=== PATIENT | female | born 1965 | race Caucasian/White ===

== ENCOUNTER → 2016-11-08 | Outpatient (CLI) | payer OTHER ==
[2016-11-08 08:44] LABS: CHOLESTEROL 173.78 mg/dL (0-200); CREATINE KINASE 78 U/L (30-135); Direct HDL 44 mg/dL (>40); TRIGLYCERIDES 152 mg/dL (<150)
[2016-11-08 08:56] LABS: DIRECT LDL 90 mg/dL (<100)
[2016-11-08 09:07] LABS: VLDL CHOLESTEROL 30.4 mg/dL (10-31)
== END ==
LOC: OD 07:07
PROVIDERS: ATTEND Internal Medicine Cardiovascular Disease
DX: E78.2 Mixed hyperlipidemia (principal)
CPT/HCPCS: 36415; 80061; 82550

== ENCOUNTER → 2017-05-01 | Outpatient (CLI) | payer OTHER ==
[2017-05-01 08:25] LABS: CHOLESTEROL 146.96 mg/dL (0-200); Direct HDL 43 mg/dL (>40); TRIGLYCERIDES 104 mg/dL (<150)
[2017-05-01 08:39] LABS: DIRECT LDL 86 mg/dL (<100)
== END ==
LOC: OD 07:08
PROVIDERS: ATTEND Internal Medicine Cardiovascular Disease
DX: E78.2 Mixed hyperlipidemia (principal)
CPT/HCPCS: 36415; 80061

== ENCOUNTER → 2017-06-24 | Outpatient (CLI) | payer OTHER ==
[2017-06-24 10:41] LABS: ALANINE AMINOTRANSFERASE 23 U/L (9-52); ALBUMIN 4.5 g/dL (3.5-5.0); ALKALINE PHOSPHATASE 94 U/L (38-126); ASPARTATE AMINO TRANSFERASE 22 U/L (14-36); BILIRUBIN,DIRECT 0.3 mg/dL (0.0-0.4); BILIRUBIN,TOTAL 0.6 mg/dL (0.2-1.3); CHOLESTEROL 256.01 mg/dL (0-200); CREATINE KINASE 115 U/L (30-135); TOTAL PROTEIN 7.1 g/dL (6.3-8.2); TRIGLYCERIDES 234 mg/dL (<150)
[2017-06-24 10:53] LABS: DIRECT LDL 169 mg/dL (<100)
[2017-06-24 10:56] LABS: VLDL CHOLESTEROL 46.8 mg/dL (10-31)
== END ==
LOC: OD 08:56
PROVIDERS: ATTEND Internal Medicine Cardiovascular Disease
DX: E78.2 Mixed hyperlipidemia (principal)
CPT/HCPCS: 36415; 80061; 80076; 82550

== ENCOUNTER → 2017-08-25 | Outpatient (CLI) | payer OTHER ==
[2017-08-25 10:43] LABS: ALANINE AMINOTRANSFERASE 35 U/L (9-52); ALBUMIN 4.7 g/dL (3.5-5.0); ALKALINE PHOSPHATASE 82 U/L (38-126); ASPARTATE AMINO TRANSFERASE 25 U/L (14-36); BILIRUBIN,DIRECT 0.1 mg/dL (0.0-0.4); BILIRUBIN,TOTAL 0.3 mg/dL (0.2-1.3); CHOLESTEROL 147.97 mg/dL (0-200); CREATINE KINASE 105 U/L (30-135); TOTAL PROTEIN 6.9 g/dL (6.3-8.2); TRIGLYCERIDES 119 mg/dL (<150)
[2017-08-25 10:54] LABS: DIRECT LDL 74 mg/dL (<100)
== END ==
LOC: OD 09:16
PROVIDERS: ATTEND Internal Medicine Cardiovascular Disease
DX: E78.2 Mixed hyperlipidemia (principal); R25.2 Cramp and spasm; Z79.899 Other long term (current) drug therapy
CPT/HCPCS: 36415; 80061; 80076; 82550

== ENCOUNTER → 2017-12-12 | Outpatient (CLI) | payer OTHER ==
[2017-12-12 08:38] LABS: ALANINE AMINOTRANSFERASE 26 U/L (9-52); ALBUMIN 4.4 g/dL (3.5-5.0); ALKALINE PHOSPHATASE 83 U/L (38-126); ASPARTATE AMINO TRANSFERASE 20 U/L (14-36); BILIRUBIN,DIRECT 0.3 mg/dL (0.0-0.4); BILIRUBIN,TOTAL 0.4 mg/dL (0.2-1.3); TOTAL PROTEIN 7.2 g/dL (6.3-8.2); TRIGLYCERIDES 127 mg/dL (<150)
[2017-12-12 08:49] LABS: DIRECT LDL 77 mg/dL (<100)
== END ==
LOC: OD 07:29
PROVIDERS: ATTEND Internal Medicine Cardiovascular Disease
DX: E78.2 Mixed hyperlipidemia (principal)
CPT/HCPCS: 36415; 80061; 80076

== ENCOUNTER → 2019-09-29 | Outpatient (CLI) | payer OTHER ==
--- NOTE | 2019-09-29 11:55 | RADIOLOGY REPORT (SQ) ---
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 RADIONUCLIDE AND DOSE: 24.4 mCi technetium 99m labeled red blood cells The route of agent administration: Intravenous TECHNIQUE: Following administration of the radionuclide, gated images of the heart are obtained in t hree projections. Left ventricular functional analysis performed. LIMITATIONS: None. FINDINGS: LEFT VENTRICULAR FUNCTION: EJECTION FRACTION: 66%. END-DIASTOLIC VOLUME: 78 mL. END-SYSTOLIC VOLUME: 30 mL. WALL MOTION: No focal wall motion abnormalities. OTHER: No other significant finding. IMPRESSION: NORMAL CARDIAC MUGA STUDY. NORMAL LEFT VENTRICULAR FUNCTION WITH VALUES ABOVE. TECHNICAL DOCUMENTATION: JOB ID: [id number] 2010 [employer]- All Rights Reserved Reading location - IP/workstation name: [email or web address]
== END ==
LOC: RAD 10:39
PROVIDERS: ATTEND Internal Medicine
DX: C50.412 Malignant neoplasm of upper-outer quadrant of left female breast (principal); R06.02 Shortness of breath
CPT/HCPCS: 78472; A9560; Q9969

== ENCOUNTER 2019-10-21 12:54 | Inpatient (IN) | payer OTHER ==
[2019-10-21] MEDS ORDERED: RINGERS SOLUTION,LACTATED 1,000 ML IV ONE ×2 (13:27→16:48)
[2019-10-21] MEDS ORDERED: ONDANSETRON HCL INJ/PF 4 MG/2 ML SDV IV ONE (13:27)
--- NOTE | 2019-10-21 13:36 | ER Document Report ---
ED Syncope and Near Syncope <MACHO OLEA - Last Filed: 10/21/19 16:50> - General Information source: Patient TRAVEL OUTSIDE OF THE [place] IN LAST 30 DAYS: No - HPI Episode witnessed (by whom): Yes Symptoms prior to episode: Abdominal pain, Dizziness. No: Chest pain, Fever, Headache, Short of breath Quality of pain: Cramping Pain Level: 1 Context: Marlow faint, Lost consciousness. denies: Recent immobilization, Recent seizures Current symptoms: Abdominal pain, Diarrhea, Dizziness, Nausea, Vomiting. denies: Back pain, Breathing difficulty, Chest pain Similar symptoms previously: Yes Recently seen / treated by doctor: Yes <BRAD ARMANDO - Last Filed: 10/21/19 17:12> - General Chief Complaint: Syncope Stated Complaint: SYNCOPE Time Seen by Provider: 10/21/19 13:02 Primary Care Provider: HU KINNEY MD [Primary Care Provider] - Follow up as needed Notes: Patient presents complaining of abdominal cramping with nausea vomiting and diarrhea. Patient states she has had symptoms for the past 4 days. Patient was at her oncologist office this afternoon and had a syncopal episode prior to arrival. Her oncologist also reported that she had a temperature of 100.2 in the office and would like to have her screened for COVID. Patient states that she feels as though she passed out due to dehydration due to the vomiting and diarrhea. Patient states that she is on a new chemo medication that has vomiting and diarrhea as side effects. Patient states that she had a syncopal episode 2 days ago as well at home but was not seen after that incident. Patient is currently receiving chemotherapy treatment for breast cancer. Patient denies any chest pain, shortness of breath, or headache. Patient reports abdominal cramping prior to diarrhea episodes and then the cramping improves. (BRAD ARMANDO) - Related Data Allergies/Adverse Reactions: cephalexin monohydrate [From Keflex] Allergy (Verified 07/12/15 13:29) clarithromycin [From Biaxin] Allergy (Verified 07/12/15 13:29) erythromycin base [Erythromycin Base] Allergy (Verified 07/12/15 13:29) erythromycin lactobionate [From Erythrocin] Allergy (Verified 07/12/15 13:29) ibuprofen [Ibuprofen] Allergy (Verified 07/12/15 13:29) iodine [Iodine] Allergy (Verified 07/12/15 13:29) Sulfa (Sulfonamide Antibiotics) Allergy (Verified 07/12/15 13:29) Past Medical History - General Information source: Patient - Social History Smoking Status: Never Smoker Frequency of alcohol use: None Drug Abuse: None Lives with: Spouse/Significant other Family History: Reviewed & Not Pertinent, Other Patient has homicidal ideation: No - Past Medical History Cardiac Medical History: Reports: Hx Atrial Fibrillation - Treated with ablation, Hx Hypercholesterolemia Endocrine Medical History: Reports: Hx Hypothyroidism Malignancy Medical History: Reports: Hx Breast Cancer Past Surgical History: Reports: Hx Cardiac Surgery, Hx Thyroid Surgery - removal, Hx Vascular Surgery - Port - Immunizations Hx Diphtheria, Pertussis, Tetanus Vaccination: Yes <BRAD ARMANDO - Last Filed: 10/21/19 17:12> Review of Systems - Review of Systems Constitutional: Fever - 100.2. denies: Recent illness EENT: No symptoms reported Cardiovascular: Syncope, Lightheaded. denies: Chest pain Respiratory: No symptoms reported. denies: Cough, Short of breath Gastrointestinal: Abdominal pain, Diarrhea, Nausea, Vomiting Genitourinary: No symptoms reported. denies: Dysuria, Flank pain Female Genitourinary: No symptoms reported Musculoskeletal: No symptoms reported. denies: Back pain Skin: No symptoms reported Hematologic/Lymphatic: No symptoms reported Neurological/Psychological: No symptoms reported <BRAD ARMANDO - Last Filed: 10/21/19 17:12> Physical Exam - General General appearance: Appears well, Alert In distress: None - HEENT Head: Normocephalic, Atraumatic Eyes: Normal Nasal: Normal Mouth/Lips: Normal Mucous membranes: Normal Neck: Normal, Supple. No: Lymphadenopathy - Respiratory Respiratory status: No respiratory distress Chest status: Nontender Breath sounds: Normal. No: Rales, Rhonchi, Stridor, Wheezing Chest palpation: Normal - Cardiovascular Rhythm: Regular. No: Tachycardia Heart sounds: S1 appreciated, S2 appreciated - Abdominal Inspection: Morbidly Obese Distension: No distension Bowel sounds: Normal Tenderness: Tender - Generalized abdomen tenderness Organomegaly: No organomegaly - Back Back: Normal, Nontender. No: CVA tenderness - Extremities General upper extremity: Normal inspection, Normal ROM General lower extremity: Normal inspection, Normal ROM - Neurological Neuro grossly intact: Yes Cognition: Normal Jacqueline Coma Scale Eye Opening: Spontaneous Jakin Coma Scale Verbal: Oriented Jacqueline Coma Scale Motor: Obeys Commands Jacqueline Coma Scale Total: 15 - Psychological Associated symptoms: Normal affect, Normal mood - Skin Skin Temperature: Warm Skin Moisture: Dry Skin Color: Normal <BRAD ARMANDO - Last Filed: 10/21/19 17:12> - Vital signs Vitals: Temp Pulse Resp BP Pulse Ox 99.1 F 99 18 130/55 H 99 10/21/19 12:56 10/21/19 12:56 10/21/19 12:56 10/21/19 12:56 10/21/19 12:56 Course - Laboratory Result Diagrams: 10/21/19 14:01 10/21/19 14:01 <MACHO OLEA - Last Filed: 10/21/19 16:50> - Laboratory Result Diagrams: 10/21/19 14:01 10/21/19 14:01 - Diagnostic Test Radiology reviewed: Reports reviewed - EKG Interpretation by [facility] EKG shows normal: Sinus rhythm [place]/QRS: RBBB When compared to previous EKG there are: No significant change <BRAD ARMANDO - Last Filed: 10/21/19 17:12> - Re-evaluation Re-evalutation: 10/21/19 16:50 Report received from CORINA Falcon. Waiting for next troponin. (MACHO OLEA) 10/21/19 13:37 The patient was evaluated during the global Covid 19 pandemic, and that diagnosis was suspected/considered upon their initial presentation. Their evaluation, treatment and testing was consistent with current guidelines for patients who present with complaints or symptoms that may be related to Covid [address]. [address] Littlejohn regarding patient presentation diagnostic evaluation. Agrees with plan for CT imaging of the head and CTA of the chest given patient's underlying history of breast cancer in the setting of syncope today. 10/21/19 15:09 Patient reports that nausea is improved at this time. Patient states that she has had an iodine allergy although has had CT imaging with IV contrast. Patient states that she did receive IV Benadryl and Pepcid prior to having her CT scan. Patient denies any use of steroids prior to imaging. 10/21/19 15:50 10/21/19 17:[address] Kinney regarding patient presentation and her diagnostic evaluation. Dr. Kinney request that a dose of IV vancomycin be given at a dose of 15 mg/kg and additional 1 g of imipenem. Also recommends having patient admitted for IV hydration given concern about syncope, neutropenia and fever. Does also request patient to be COVID tested. Patient is agreeable with this plan of care. Consulted with hospitalist Dr. Bernal who does agree to accept patient for admission at this time. Patient states that she does have an allergy to Keflex but that it only caused her to become nauseous and she did not have any anaphylactic symptoms. (BRAD ARMANDO) - Vital Signs Vital signs: Temp Pulse Resp BP Pulse Ox 99.1 F 91 23 H 125/75 100 10/21/19 12:56 10/21/19 14:38 10/21/19 16:02 10/21/19 16:02 10/21/19 16:02 - Laboratory Laboratory results interpreted by me: 10/21/19 10/21/19 14:01 14:01 WBC 1.3 L* Hct 34.7 L Seg Neuts % (Manual) 20 L Lymphocytes % (Manual) 50 H Monocytes % (Manual) 30 H Abs Neuts (Manual) 0.3 L Sodium 130.0 L Carbon Dioxide 19 L 10/21/19 10/21/19 14:01 14:01 WBC 1.3 L* Hct 34.7 L Seg Neuts % (Manual) 20 L Lymphocytes % (Manual) 50 H Monocytes % (Manual) 30 H Abs Neuts (Manual) 0.3 L Sodium 130.0 L Carbon Dioxide 19 L 10/21/19 17:11 Labs- Entire Visit 10/21/19 10/21/19 10/21/19 14:01 14:01 14:01 WBC 1.3 L* RBC 4.03 Hgb 12.2 Hct 34.7 L MCV 86 MCH 30.3 MCHC 35.2 RDW 13.3 Plt Count 182 Lymph % (Auto) Not Reportable [place] % (Auto) Not Reportable Eos % (Auto) Not Reportable Baso % (Auto) Not Reportable Absolute Neuts (auto) Not Reportable Absolute Lymphs (auto) Not Reportable Absolute Monos (auto) Not Reportable Absolute Eos (auto) Not Reportable Absolute Basos (auto) Not Reportable Total Counted 50 Seg Neutrophils % Not Reportable Seg Neuts % (Manual) 20 L Lymphocytes % (Manual) 50 H Monocytes % (Manual) 30 H Eosinophils % (Manual) 0 Basophils % (Manual) 0 Abs Neuts (Manual) 0.3 L Abs Lymphs (Manual) 0.7 Abs Monocytes (Manual) 0.4 Absolute Eos (Manual) 0.0 Abs Basophils (Manual) 0.0 Toxic Vacuolation PRESENT Large Platelets PRESENT Platelet Comment ADEQUATE Polychromasia SLIGHT Sodium 130.0 L Potassium 3.6 Chloride 101 Carbon Dioxide 19 L Anion Gap 10 BUN 11 Creatinine 0.74 Est GFR ( Amer) > 60 Est GFR (MDRD) Non-Af > 60 Glucose 94 Calcium 8.8 Magnesium 2.0 Total Bilirubin 0.4 Direct Bilirubin 0.0 Neonat Total Bilirubin Not Reportable Neonat Direct Bilirubin Not Reportable Neonat Indirect Bili Not Reportable AST 30 ALT 31 Alkaline Phosphatase 80 Troponin I < 0.012 Total Protein 6.5 Albumin 3.8 Lipase 191.5 Group A Strep Rapid 10/21/19 14:09 WBC RBC Hgb Hct MCV MCH MCHC RDW Plt Count Lymph % (Auto) [place] % (Auto) Eos % (Auto) Baso % (Auto) Absolute Neuts (auto) Absolute Lymphs (auto) Absolute Monos (auto) Absolute Eos (auto) Absolute Basos (auto) Total Counted Seg Neutrophils % Seg Neuts % (Manual) Lymphocytes % (Manual) Monocytes % (Manual) Eosinophils % (Manual) Basophils % (Manual) Abs Neuts (Manual) Abs Lymphs (Manual) Abs Monocytes (Manual) Absolute Eos (Manual) Abs Basophils (Manual) Toxic Vacuolation Large Platelets Platelet Comment Polychromasia Sodium Potassium Chloride Carbon Dioxide Anion Gap BUN Creatinine Est GFR ( Amer) Est GFR (MDRD) Non-Af Glucose Calcium Magnesium Total Bilirubin Direct Bilirubin Neonat Total Bilirubin Neonat Direct Bilirubin Neonat Indirect Bili AST ALT Alkaline Phosphatase Troponin I Total Protein Albumin Lipase Group A Strep Rapid NEGATIVE (BRAD ARMANDO) - EKG Interpretation by Me Additional EKG results interpreted by me: 10/21/19 14:[address] elevation, QTc 491 (BRAD ARMANDO) Discharge <MACHO OLEA - Last Filed: 10/21/19 16:50> - Discharge Admitting Provider: Dolores (Hospitalist) Unit Admitted: Telemetry - covid floor <BRAD ARMANDO - Last Filed: 10/21/19 17:12> - Discharge Clinical Impression: Syncope Qualifiers: Syncope type: unspecified Qualified Code(s): R55 - Syncope and collapse Fever Qualifiers: Fever type: unspecified Qualified Code(s): R50.9 - Fever, unspecified Neutropenia Qualifiers: Neutropenia type: secondary to cancer chemotherapy Qualified Code(s): D70.1 - Agranulocytosis secondary to cancer chemotherapy Breast cancer Qualifiers: Breast location: unspecified site of breast Estrogen receptor status: unspecified Patient sex: female Laterality: unspecified laterality Qualified Code(s): C50.919 - Malignant neoplasm of unspecified site of unspecified female breast Condition: Fair Disposition: ADMITTED INPATIENT Referrals: HU KINNEY MD [Primary Care Provider] - Follow up as needed
--- NOTE | 2019-10-21 14:15 | RADIOLOGY REPORT (SQ) ---
EXAM DESCRIPTION: CHEST SINGLE VIEW IMAGES COMPLETED DATE/TIME: 10/21/2019 2:04 pm REASON FOR STUDY: syncope COMPARISON: 07/12/2015. EXAM PARAMETERS: NUMBER OF VIEWS: One view. TECHNIQUE: Single frontal radiographic view of the chest acquired. RADIATION DOSE: NA LIMITATIONS: None. FINDINGS: LUNGS AND PLEURA: No opacities, masses or pneumothorax. No pleural effusion. MEDIASTINUM AND HILAR STRUCTURES: No masses. Contour normal. HEART AND VASCULAR STRUCTURES: Heart normal in size. Normal vasculature. BONES: No acute findings. HARDWARE: Vascular port. Clips in the soft tissues of the neck. OTHER: No other significant finding. IMPRESSION: NO ACUTE RADIOGRAPHIC FINDING IN THE CHEST. TECHNICAL DOCUMENTATION: JOB ID: [id number] 2010 [employer]- All Rights Reserved Reading location - IP/workstation name: [email or web address]
[2019-10-21 14:38] LABS: HEMATOCRIT 34.7 % (36.0-47.0); HEMOGLOBIN 12.2 g/dL (12.0-15.5); MEAN CORPUSCULAR HEMOGLOBIN 30.3 pg (27.0-33.4); MEAN CORPUSCULAR HGB CONC 35.2 g/dL (32.0-36.0); MEAN CORPUSCULAR VOLUME 86 fl (80-97); PLATELET COUNT 182 10^3/uL (150-450); RED BLOOD COUNT 4.03 10^6/uL (3.72-5.28); RED CELL DISTRIBUTION WIDTH 13.3 % (11.5-14.0)
[2019-10-21 14:46] LABS: ALBUMIN 3.8 g/dL (3.5-5.0); ALKALINE PHOSPHATASE 80 U/L (38-126); ANION GAP 10 (5-19); ASPARTATE AMINO TRANSFERASE 30 U/L (14-36); BILIRUBIN,TOTAL 0.4 mg/dL (0.2-1.3); BLOOD UREA NITROGEN 11 mg/dL (7-20); CALCIUM 8.8 mg/dL (8.4-10.2); CARBON DIOXIDE 19 mmol/L (22-30); CHLORIDE 101 mmol/L (98-107); GLUCOSE 94 mg/dL (75-110); POTASSIUM 3.6 mmol/L (3.6-5.0); TOTAL PROTEIN 6.5 g/dL (6.3-8.2)
[2019-10-21 15:02] LABS: ABSOLUTE LYMPHOCYTES# (MANUAL) 0.7 10^3/uL (0.5-4.7); ABSOLUTE MONOCYTES # (MANUAL) 0.4 10^3/uL (0.1-1.4); BASOPHILS % (MANUAL) 0 % (0-2); EOSINOPHILS % (MANUAL) 0 % (0-6); LYMPHOCYTES % (MANUAL) 50 % (13-45); PLATELET COMMENT ADEQUATE; SEGMENTED NEUTROPHILS % (MAN) 20 % (42-78); TOTAL CELLS COUNTED 50
[2019-10-21 15:03] LABS: PLATELET LARGE PRESENT; POLYCHROMASIA SLIGHT; TOXIC VACUOLATION PRESENT
[2019-10-21 15:05] LABS: MONOCYTES % (MANUAL) 30 % (3-13)
[2019-10-21 15:07] LABS: WHITE BLOOD COUNT 1.3 10^3/uL (4.0-10.5)
[2019-10-21] MEDS ORDERED: DIPHENHYDRAMINE HCL 50 MG/ML VIAL IV ONE (15:08)
[2019-10-21] MEDS ORDERED: FAMOTIDINE INJ/PF 20 MG/2 ML SDV IV ONE (15:09)
--- NOTE | 2019-10-21 16:09 | RADIOLOGY REPORT (SQ) ---
EXAM DESCRIPTION: CT HEAD WITHOUT IMAGES COMPLETED DATE/TIME: 10/21/2019 3:59 pm REASON FOR STUDY: syncope COMPARISON: None. TECHNIQUE: Axial images acquired through the brain without intravenous contrast. Images reviewed wi th bone, brain and subdural windows. Additional sagittal and coronal reconstructions were generated. Images stored on PACS. All CT scanners at this facility use dose modulation, iterative reconstruction, and/or weight based d osing when appropriate to reduce radiation dose to as low as reasonably achievable (ALARA). [facility]: Dose Right [facility]: CareDose [facility]: Dose Right [facility]: Teradose 4D [facility]: ezCater RADIATION DOSE: CT Rad equipment meets quality standard of care and radiation dose reduction techniq ues were employed. CTDIvol: 53.2 mGy. DLP: 991 mGy-cm. mGy. LIMITATIONS: None. FINDINGS: VENTRICLES: Normal size and contour. CEREBRUM: No masses. No hemorrhage. No midline shift. No evidence for acute infarction. Normal gra y/white matter differentiation. No areas of low density in the white matter. CEREBELLUM: No masses. No hemorrhage. No alteration of density. No evidence for acute infarction. EXTRAAXIAL SPACES: No fluid collections. No masses. ORBITS AND GLOBE: No intra- or extraconal masses. Normal contour of globe without masses. CALVARIUM: No fracture. PARANASAL SINUSES: No fluid or mucosal thickening. SOFT TISSUES: No mass or hematoma. OTHER: No other significant finding. IMPRESSION: NORMAL BRAIN CT WITHOUT CONTRAST. EVIDENCE OF ACUTE STROKE: NO. COMMENT: Quality ID # [id number]: Final reports with documentation of one or more dose reduction techniques (e.g., Automated exposure control, adjustment of the mA and/or kV according to patient size, use of iterative reconstruction technique) TECHNICAL DOCUMENTATION: JOB ID: [id number] 2010 [employer]- All Rights Reserved Reading location - IP/workstation name: [email or web address]
--- NOTE | 2019-10-21 16:11 | RADIOLOGY REPORT (SQ) ---
EXAM DESCRIPTION: CTA CHEST IMAGES COMPLETED DATE/TIME: 10/21/2019 3:59 pm REASON FOR STUDY: syncope, hx breast cancer COMPARISON: None. TECHNIQUE: CT scan of the chest performed using helical scanning technique with dynamic intravenous contrast injection. Images reviewed with lung, soft tissue and bone windows. Reconstructed coronal and sagittal MPR images reviewed. Additional 3 dimensional post-processing performed to develop Maximal Intensity Projection images (MO P). All images stored on PACS. All CT scanners at this facility use dose modulation, iterative reconstruction, and/or weight based d osing when appropriate to reduce radiation dose to as low as reasonably achievable (ALARA). [facility]: Dose Right [facility]: CareDose [facility]: Dose Right [facility]: Teradose 4D [facility]: Liquid X CONTRAST TYPE AND DOSE: contrast/concentration: Isovue 350.00 mg/ml; Total Contrast Delivered: 65.0 ml; Total Saline Delivered: 65.9 ml Contrast bolus adequate for pulmonary arteries and aorta. RENAL FUNCTION: GFR > 60. RADIATION DOSE: CT Rad equipment meets quality standard of care and radiation dose reduction techniq ues were employed. CTDIvol: 13.2 - 29.8 mGy. DLP: 1179 mGy-cm. . LIMITATIONS: None. FINDINGS: LUNGS AND PLEURA: No masses, infiltrates, or pneumothorax. No pleural effusions or pleura l calcifications. AORTA AND GREAT VESSELS: No aneurysm. No dissection. HEART: No pericardial effusion. No significant coronary artery calcifications. PULMONARY ARTERIES: No emboli visualized in the main pulmonary arteries or the segmental branches. HILAR AND MEDIASTINAL STRUCTURES: No identified masses or abnormal nodes. HARDWARE: None in the chest. UPPER ABDOMEN: No significant findings. Limited exam. THYROID AND OTHER SOFT TISSUES: No masses. No adenopathy. BONES: No acute or significant finding. 3D MIPS: Confirm above findings. OTHER: Right-sided port tip in the SVC. IMPRESSION: No PE. No acute findings. COMMENT: Quality ID # [id number]: Final reports with documentation of one or more dose reduction techniques (e.g., Automated exposure control, adjustment of the mA and/or kV according to patient size, use of iterative reconstruction technique) TECHNICAL DOCUMENTATION: JOB ID: [id number] 2010 [employer]- All Rights Reserved Reading location - IP/workstation name: [email or web address]
[2019-10-21] MEDS ORDERED: VANCOMYCIN HCL INJ 1000 MG VIAL IV ONE (16:50)
[2019-10-21] MEDS ORDERED: IMIPENEM/CILASTATIN SODIUM INJ 500 MG VIAL IV ONE (17:09)
[2019-10-21] MEDS ORDERED: DIPHENOXYLATE HCL/ATROP SULF 2.5-0.025 MG TABLET PO PRN (17:37)
[2019-10-21] MEDS ORDERED: VANCOMYCIN HCL 0 MG in DEXTROSE 5%-WATER 250 ML IV NR (17:45)
--- NOTE | 2019-10-21 18:00 | PDOC H&P ---
History of Present Illness Admission Date/PCP: 10/21/19 17:33 HU KINNEY MD History of Present Illness: JODIE FLORES is a 53 year old female with a history of atrial fibrillation status post ablation, hypothyroidism, hyperlipidemia, and recently diagnosed breast cancer. She said she was first diagnosed in August of this year. She just started chemotherapy about a week ago. She said about 4 days after she started chemotherapy, she started having diarrhea, which began about 4 days ago. She says she has been intermittently febrile since then. She said last night she had a fever of 101.2 Fahrenheit. She has not had any cough or shortness of breath. She is not had any dysuria. She has not had any abdominal pain, but she has had a lot of diarrhea. No vomiting. The diarrhea has been watery and not bloody. She has not been around anyone she knows to be sick. 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 She has been taking loperamide and Lomotil at home with minor benefit if any. She says she had an episode a couple of days ago where she passed out while she was on the toilet. She said yesterday she went to Dr. Kinney's office and got a bag of IV fluids and when she got up to walk out of the office she got really dizzy again. She said she has had a problem with that for several years and usually takes her time whenever she gets up before she starts walking. She denied feeling any palpitations before she passed out. She had atrial fibrillation and was on Multaq and Xarelto for some time, but after she got the ablation she was able to come off of both of those. She is in a sinus rhythm in the ER. She did not have any electrolyte disturbances or renal failure. She did have leukocytopenia with a neutropenia. She is being admitted for some empiric antibiotics for neutropenic fever along with checking her blood cultures, as well as evaluation of other etiologies of her syncope, and some IV fluids and an attempt to manage her diarrhea. Past Medical History Cardiac Medical History: Reports: Atrial Fibrillation - Treated with ablation, Hyperlipidema Endocrine Medical History: Reports: Hypothyroidism Malignancy Medical History: Reports: Breast Cancer Past Surgical History Past Surgical History: Reports: Vascular Surgery - Port Social History Lives with: Spouse/Significant other Smoking Status: Never Smoker Family History Family History: Reviewed & Not Pertinent, Hyperlipidemia, Hypertension, Thyroid Disfunction, Other Parental Family History Reviewed: Yes Children Family History Reviewed: Yes Sibling(s) Family History Reviewed.: Yes Medication/Allergy Home Medications: Levothyroxine Sodium [Synthroid 0.1 mg Tablet] 0.1 mg PO DAILY 01/17/13 Atorvastatin Calcium [Lipitor 40 mg Tablet] 40 mg PO QHS #30 tablet 01/19/13 Dronedarone Hydrochloride [Multaq 400 mg Tablet] 400 mg PO Q12 #60 tablet 01/19/13 Rivaroxaban [Xarelto 10 mg Tablet] 20 mg PO WSUPPER #30 tablet 01/19/13 Allergies/Adverse Reactions: cephalexin monohydrate [From Keflex] Allergy (Verified 07/12/15 13:29) clarithromycin [From Biaxin] Allergy (Verified 07/12/15 13:29) erythromycin base [Erythromycin Base] Allergy (Verified 07/12/15 13:29) erythromycin lactobionate [From Erythrocin] Allergy (Verified 07/12/15 13:29) ibuprofen [Ibuprofen] Allergy (Verified 07/12/15 13:29) iodine [Iodine] Allergy (Verified 07/12/15 13:29) Sulfa (Sulfonamide Antibiotics) Allergy (Verified 07/12/15 13:29) Review of Systems All systems: reviewed and no additional remarkable complaints except as stated - all systems were reviewed and were negative except as noted in the HPI Physical Exam Vital Signs: Temp Pulse Resp BP Pulse Ox 99.1 F 91 21 H 119/76 100 10/21/19 12:56 10/21/19 14:38 10/21/19 17:01 10/21/19 17:01 10/21/19 17:01 Intake & Output 10/20/19 10/21/19 10/22/19 06:59 06:59 06:59 Intake Total 1000 Balance 1000 Weight 89.993 kg General appearance: PRESENT: no acute distress, cooperative, disheveled, obese Head exam: PRESENT: atraumatic, normocephalic Eye exam: PRESENT: EOMI, PERRLA. ABSENT: conjunctival injection, nystagmus, scleral icterus Ear exam: PRESENT: normal external ear exam Mouth exam: PRESENT: dry mucosa, neck supple Throat exam: ABSENT: post pharyngeal erythema Neck exam: PRESENT: full ROM. ABSENT: carotid bruit, JVD, lymphadenopathy, meningismus, tenderness, thyromegaly Respiratory exam: PRESENT: clear to auscultation arnulfo, symmetrical, unlabored. A BSENT: accessory muscle use, chest wall tenderness, crackles, prolonged expiratory phas, retraction, rhonchi, tachypnea, wheezes Cardiovascular exam: PRESENT: RRR, +S1, +S2. ABSENT: systolic murmur Pulses: PRESENT: normal carotid pulses Vascular exam: PRESENT: normal capillary refill GI/Abdominal exam: PRESENT: hyperactive bowel sounds, soft. ABSENT: distended, guarding, tenderness Extremities exam: ABSENT: clubbing, pedal edema Musculoskeletal exam: PRESENT: ambulatory, normal inspection. ABSENT: deformity Neurological exam: PRESENT: alert, awake, oriented to person, oriented to place, oriented to time, oriented to situation, CN II-XII grossly intact. ABSENT: motor sensory deficit Psychiatric exam: PRESENT: appropriate affect, normal mood Skin exam: PRESENT: dry, warm Results Laboratory Results: 10/21/19 14:01 10/21/19 14:01 10/21/19 10/21/19 14:01 14:01 WBC 1.3 L* RBC 4.03 Hgb 12.2 Hct 34.7 L MCV 86 MCH 30.3 MCHC 35.2 RDW 13.3 Plt Count 182 Seg Neutrophils % Not Reportable Sodium 130.0 L Potassium 3.6 Chloride 101 Carbon Dioxide 19 L Anion Gap 10 BUN 11 Creatinine 0.74 Est GFR ( Amer) > 60 Glucose 94 Calcium 8.8 Magnesium 2.0 Total Bilirubin 0.4 AST 30 Alkaline Phosphatase 80 Total Protein 6.5 Albumin 3.8 Lipase 191.5 10/21/19 14:01 Troponin I < 0.012 Impressions: Chest X-Ray 10/21/19 13:23 IMPRESSION: NO ACUTE RADIOGRAPHIC FINDING IN THE CHEST. Chest/Abdomen CTA 10/21/19 13:26 IMPRESSION: No PE. No acute findings. Head CT 10/21/19 13:26 IMPRESSION: NORMAL BRAIN CT WITHOUT CONTRAST. EVIDENCE OF ACUTE STROKE: NO. Assessment and Plan - Diagnosis (1) Neutropenic fever Is this a current diagnosis for this admission?: Yes Plan: No obvious signs of overt infection. She said that she was told the type of chemotherapy she takes is highly likely to induce diarrhea. She likely has some translocation of gut bacteria. Cultures have been obtained. She is put on empiric antibiotics. She is being empirically tested for SARS-CoV2. (2) Hypothyroidism Qualifiers: Hypothyroidism type: acquired Qualified Code(s): E03.9 - Hypothyroidism, unspecified Is this a current diagnosis for this admission?: Yes Plan: We will continue her Synthroid (3) Hyperlipidemia Qualifiers: Hyperlipidemia type: other hyperlipidemia Qualified Code(s): E78.49 - Other hyperlipidemia; E78.4 - Other hyperlipidemia Is this a current diagnosis for this admission?: Yes Plan: We will continue Crestor (4) History of atrial fibrillation Is this a current diagnosis for this admission?: Yes Plan: She does not take any rate controlling or rhythm controlling medications, nor is she on anticoagulation. She says she was taken off of these after her ablation. We will keep her on the heart monitor in case her syncope is cardiac rhythm related. (5) Breast cancer Qualifiers: Breast location: lower outer quadrant of breast Estrogen receptor status: unspecified Patient sex: female Laterality: left Qualified Code(s): C50.512 - Malignant neoplasm of lower-outer quadrant of left female breast Is this a current diagnosis for this admission?: Yes Plan: She does not recall the exact name of the drug she was on, but she was told that that was probably the reason for her diarrhea. The ER contacted Dr. Kinney and he will be following remotely. (6) Syncope Qualifiers: Syncope type: vasovagal syncope Qualified Code(s): R55 - Syncope and collapse Is this a current diagnosis for this admission?: Yes Plan: Based on her description it sounds like a vasovagal syncope, possibly brought on by dehydration and hypovolemia from the diarrhea she is been having for the past few days. However, her orthostatics were unremarkable in the ER. She does have a history of atrial fibrillation in the ablation and so we will keep her on a bat boy/girl to see if she has any sort of arrhythmia. We will hydrate her and repeat her orthostatics. - Time Time Spent with patient: 35 or more minutes - Inpatient Certification Based on my medical assessment, after consideration of the patient's comorbidities, presenting symptoms, or acuity I expect that the services needed warrant INPATIENT care.: Yes I certify that my determination is in accordance with my understanding of Medicare's requirements for reasonable and necessary INPATIENT services [42 CFR 412.3e].: Yes Medical Necessity: Significant Comorbidiites Make Outpatient Treatment Too Risky, Need Close Monitoring Due to Risk of Patient Decompensation, Need For IV Fluids, Need For Continuous Telemetry Monitoring, Need for IV Antibiotics
[2019-10-21] MEDS ORDERED: DIPHENHYDRAMINE HCL 50 MG/ML VIAL IV PRN (20:07)
[2019-10-21] MEDS: ONDANSETRON HCL INJ/PF 4 MG/2 ML SDV IV PRN (20:35)
[2019-10-22 00:05] LABS: APPEARANCE,URINE CLEAR; BILIRUBIN,URINE NEGATIVE (NEGATIVE); COLOR,URINE YELLOW; GLUCOSE, URINE 50 mg/dL (NEGATIVE); KETONES,URINE TRACE mg/dL (NEGATIVE); LEUKOCYTE ESTERASE,URINE NEGATIVE (NEGATIVE); NITRITE,URINE NEGATIVE (NEGATIVE); PROTEIN,URINE NEGATIVE (NEGATIVE); URINE SPECIFIC GRAVITY 1.015; UROBILINOGEN,URINE NEGATIVE mg/dL (<2.0)
[2019-10-22] MEDS: HEPARIN SOD (PORCINE) 5,000 UNIT/ML 1 ML VIAL SUBCUT SCH ×4 (01:49→21:31)
[2019-10-22] MEDS: MEROPENEM 1 GM in NORMAL SALINE 50 ML IV SCH ×3 (01:54→18:31)
[2019-10-22] MEDS: VANCOMYCIN HCL 1,250 MG in DEXTROSE 5%-WATER 250 ML IV SCH ×2 (06:21→21:31)
[2019-10-22 06:54] LABS: HEMATOCRIT 30.9 % (36.0-47.0); HEMOGLOBIN 11.1 g/dL (12.0-15.5); MEAN CORPUSCULAR HEMOGLOBIN 30.9 pg (27.0-33.4); MEAN CORPUSCULAR VOLUME 86 fl (80-97); PLATELET COUNT 185 10^3/uL (150-450); RED CELL DISTRIBUTION WIDTH 13.3 % (11.5-14.0)
[2019-10-22 06:57] LABS: ANION GAP 7 (5-19); BLOOD UREA NITROGEN 5 mg/dL (7-20); CALCIUM 8.2 mg/dL (8.4-10.2); CARBON DIOXIDE 24 mmol/L (22-30); CHLORIDE 100 mmol/L (98-107); GLUCOSE 96 mg/dL (75-110); POTASSIUM 3.6 mmol/L (3.6-5.0)
[2019-10-22 07:31] LABS: WHITE BLOOD COUNT 2.8 10^3/uL (4.0-10.5)
[2019-10-22 07:35] LABS: ABSOLUTE LYMPHOCYTES# (MANUAL) 1.6 10^3/uL (0.5-4.7); ABSOLUTE MONOCYTES # (MANUAL) 0.8 10^3/uL (0.1-1.4); BASOPHILS % (MANUAL) 1 % (0-2); EOSINOPHILS % (MANUAL) 0 % (0-6); LYMPHOCYTES % (MANUAL) 56 % (13-45); MONOCYTES % (MANUAL) 28 % (3-13); PLATELET COMMENT ADEQUATE; SEGMENTED NEUTROPHILS % (MAN) 15 % (42-78); TOTAL CELLS COUNTED 100
[2019-10-22 07:36] LABS: OVALOCYTES SLIGHT; POLYCHROMASIA SLIGHT
--- NOTE | 2019-10-22 08:52 | PDOC CONSULTATION ---
Consultation Consult Date: 10/22/19 Attending physician:: GEOVANNA BURTON Provider Consulted: HU BERNARD Consult reason:: Neutropenic fever, stage stage III breast cancer getting neoadjuvant chemo History of Present Illness Admission Date/PCP: 10/21/19 17:33 HU BERNARD MD Patient complains of: Weakness, fever, diarrhea History of Present Illness: JODIE FLORES is a 53 year old female w/ Stage III breast cancer, received cycle #1 of Perjeta/Taxotere/Carboplatin/Herceptin ([facility]) on 10/13/19, called us 3 days ago w/ c/o of fever, weakness, diarrhea, dehydration, started cipro 500mg BID 3 days ago, presented to office 2 days ago for IVF, antiemetics, felt better but then went home and still had N/V/diarrhea, fever, came to our office yesterday and passed out, so we referred her to ED, called them, she hypotensive tachycardic w/ low grade fever on admit to ED, BCx/UCx was done, cbc indicated neutropenia w/ ANC 300, recommended ED to admit her to hospitalist team for treatment of neutropenic fever. She was given cefepime and vanc to start and feels better per nursing today. I gave orders for neupogen to start today. She did not get G-CSF with first chemo as insurance denied that without symptomatic neutropenia. Past Medical History Cardiac Medical History: Reports: Atrial Fibrillation - Treated with ablation, Hyperlipidema Endocrine Medical History: Reports: Hypothyroidism Malignancy Medical History: Reports: Breast Cancer Psychiatric Medical History: Denies: Depression Past Surgical History Past Surgical History: Reports: Vascular Surgery - Port Social History Lives with: Spouse/Significant other Smoking Status: Unknown if Ever Smoked - Advance Directive Resuscitation Status: Full Code Family History Family History: Reviewed & Not Pertinent, Hyperlipidemia, Hypertension, Thyroid Disfunction, Other Parental Family History Reviewed: Yes Children Family History Reviewed: Yes Sibling(s) Family History Reviewed.: Yes Medication/Allergy Home Medications: Eszopiclone [Lunesta] 1 mg PO QHS PRN 10/21/19 Levothyroxine Sodium 88 mcg PO QAM 10/21/19 Allergies/Adverse Reactions: cephalexin monohydrate [From Keflex] Allergy (Verified 07/12/15 13:29) clarithromycin [From Biaxin] Allergy (Verified 07/12/15 13:29) erythromycin base [Erythromycin Base] Allergy (Verified 07/12/15 13:29) erythromycin lactobionate [From Erythrocin] Allergy (Verified 07/12/15 13:29) ibuprofen [Ibuprofen] Allergy (Verified 07/12/15 13:29) iodine [Iodine] Allergy (Verified 07/12/15 13:29) Sulfa (Sulfonamide Antibiotics) Allergy (Verified 07/12/15 13:29) Physical Exam Vital Signs: Temp Pulse Resp BP Pulse Ox 99.7 F 95 17 108/55 L 97 10/22/19 04:00 10/22/19 04:00 10/22/19 04:00 10/22/19 04:00 10/22/19 04:00 Intake & Output 10/21/19 10/22/19 10/23/19 06:59 06:59 06:59 Intake Total 2100 Output Total 600 Balance 1500 Weight 89 kg Results Laboratory Results: 10/22/19 06:15 10/22/19 06:15 10/21/19 10/21/19 10/21/19 14:01 14:01 23:42 WBC 1.3 L* RBC 4.03 Hgb 12.2 Hct 34.7 L MCV 86 MCH 30.3 MCHC 35.2 RDW 13.3 Plt Count 182 Seg Neutrophils % Not Reportable Sodium 130.0 L Potassium 3.6 Chloride 101 Carbon Dioxide 19 L Anion Gap 10 BUN 11 Creatinine 0.74 Est GFR ( Amer) > 60 Glucose 94 Calcium 8.8 Magnesium 2.0 Total Bilirubin 0.4 AST 30 Alkaline Phosphatase 80 Total Protein 6.5 Albumin 3.8 Lipase 191.5 TSH Urine Color YELLOW Urine Appearance CLEAR Urine pH 7.0 Ur Specific [place] 1.015 Urine Protein NEGATIVE Urine Glucose (UA) 50 H Urine Ketones TRACE H Urine Blood SMALL H Urine Nitrite NEGATIVE Ur Leukocyte Esterase NEGATIVE Urine WBC (Auto) 1 Urine RBC (Auto) 2 10/22/19 10/22/19 10/22/19 06:15 06:15 06:15 WBC 2.8 L D RBC 3.60 L Hgb 11.1 L Hct 30.9 L MCV 86 MCH 30.9 MCHC 36.0 RDW 13.3 Plt Count 185 Seg Neutrophils % Not Reportable Sodium 131.1 L Potassium 3.6 Chloride 100 Carbon Dioxide 24 Anion Gap 7 BUN 5 L Creatinine 0.75 Est GFR ( Amer) > 60 Glucose 96 Calcium 8.2 L Magnesium Total Bilirubin AST Alkaline Phosphatase Total Protein Albumin Lipase TSH 2.56 Urine Color Urine Appearance Urine pH Ur Specific [place] Urine Protein Urine Glucose (UA) Urine Ketones Urine Blood Urine Nitrite Ur Leukocyte Esterase Urine WBC (Auto) Urine RBC (Auto) 10/21/19 10/21/19 14:01 18:13 Troponin I < 0.012 < 0.012 Impressions: Chest X-Ray 10/21/19 13:23 IMPRESSION: NO ACUTE RADIOGRAPHIC FINDING IN THE CHEST. Chest/Abdomen CTA 10/21/19 13:26 IMPRESSION: No PE. No acute findings. Head CT 10/21/19 13:26 IMPRESSION: NORMAL BRAIN CT WITHOUT CONTRAST. EVIDENCE OF ACUTE STROKE: NO. Assessment & Plan - Diagnosis (1) Neutropenic fever Is this a current diagnosis for this admission?: Yes Plan: Cont cefepime and vanc for next 24 hours if bcx neg 48 hr, d/c vanc, cont cefepime until ANC >1000. Started neupogen, con't until ANC>1000 (2) Breast cancer Qualifiers: Breast location: lower outer quadrant of breast Estrogen receptor status: negative Patient sex: female Laterality: left Qualified Code(s): C50.512 - Malignant neoplasm of lower-outer quadrant of left female breast; Z17.1 - Estrogen receptor negative status [ER-] Is this a current diagnosis for this admission?: Yes Plan: Stage III L breast ca s/p cycle #1 of [facility], will cont rx as outpt, will give Neulasta now w/ next cycle as insurance should now approve (3) Dehydration Is this a current diagnosis for this admission?: Yes Plan: Likely cause of syncope, 2nd to N/V/Diarrhea from chemo. Con't IVF, would consider change for LR to NS. (4) Nausea & vomiting Qualifiers: Vomiting type: unspecified Vomiting Intractability: intractable Qualified Code(s): R11.2 - Nausea with vomiting, unspecified Is this a current diagnosis for this admission?: Yes Plan: chemo induced, cont antiemetics as needed and IVF (5) Diarrhea Qualifiers: Diarrhea type: unspecified type Qualified Code(s): R19.7 - Diarrhea, unspecified Is this a current diagnosis for this admission?: Yes Plan: Also likely chemo induced, f/u infectious w/u. We also did w/u as outpt, will let you know if results for anything come positive. - Time Time Spent: Greater than 70 Minutes - Inpatient Certification Based on my medical assessment, after consideration of the patient's comorbi dities, presenting symptoms, or acuity I expect that the services needed warrant INPATIENT care.: Yes I certify that my determination is in accordance with my understanding of Medicare's requirements for reasonable and necessary INPATIENT services [42 CFR 412.3e].: Yes Medical Necessity: Need For IV Fluids, Need for IV Antibiotics, Risk of Complication if Not Cared For in Hospital
[2019-10-22] MEDS: FILGRASTIM-AAFI 480 MCG/0.8 ML SYRINGE SUBCUT SCH (09:20)
[2019-10-22] MEDS ORDERED: FILGRASTIM INJ 480 MCG/1.6 ML VIAL SUBCUT SCH (10:00)
[2019-10-22 11:56] LABS: PATH REVIEW PATHOLOGIST REVIEWED
[2019-10-22] MEDS: RINGERS SOLUTION,LACTATED 1,000 ML IV PRN (13:13)
[2019-10-22] MEDS: LOPERAMIDE HCL 2 MG CAPSULE PO PRN (13:22)
[2019-10-22 14:42] LABS: C DIFFICILE GDH NEGATIVE (NEGATIVE)
--- NOTE | 2019-10-22 15:37 | PDOC PROGRESS REPORT ---
Subjective Progress Note for:: 10/22/19 Subjective:: No adverse events overnight. No fevers. She had some diarrhea last night but has not had any this morning. She was started on some Neupogen and her blood counts are showing some signs of responding. She has been eating okay and has not had any abdominal pain. Reason For Visit: SYNCOPE,NEUTROPENIC FEVER,ENTERITIS,BREAST CANCER Physical Exam Vital Signs: Temp Pulse Resp BP Pulse Ox 98.6 F 95 18 92/48 L 95 10/22/19 10:50 10/22/19 10:50 10/22/19 10:50 10/22/19 10:50 10/22/19 10:50 Intake & Output 10/21/19 10/22/19 10/23/19 06:59 06:59 06:59 Intake Total 2150 300 Output Total 600 Balance 1550 300 Weight 89 kg General appearance: PRESENT: no acute distress, cooperative, disheveled, obese Respiratory exam: PRESENT: clear to auscultation arnulfo, symmetrical, unlabored. ABSENT: accessory muscle use, chest wall tenderness, crackles, prolonged expiratory phas, retraction, rhonchi, tachypnea, wheezes Cardiovascular exam: PRESENT: RRR, +S1, +S2. ABSENT: systolic murmur Pulses: PRESENT: normal carotid pulses Vascular exam: PRESENT: normal capillary refill GI/Abdominal exam: PRESENT: hyperactive bowel sounds, soft. ABSENT: distended, guarding, tenderness Extremities exam: ABSENT: clubbing, pedal edema Musculoskeletal exam: PRESENT: ambulatory, normal inspection. ABSENT: deformity Neurological exam: PRESENT: alert, awake, oriented to person, oriented to place, oriented to time, oriented to situation Psychiatric exam: PRESENT: appropriate affect, normal mood Skin exam: PRESENT: dry, warm Results Laboratory Results: 10/22/19 06:15 10/22/19 06:15 10/21/19 10/22/19 10/22/19 23:42 06:15 06:15 WBC 2.8 L D RBC 3.60 L Hgb 11.1 L Hct 30.9 L MCV 86 MCH 30.9 MCHC 36.0 RDW 13.3 Plt Count 185 Seg Neutrophils % Not Reportable Sodium 131.1 L Potassium 3.6 Chloride 100 Carbon Dioxide 24 Anion Gap 7 BUN 5 L Creatinine 0.75 Est GFR ( Amer) > 60 Glucose 96 Calcium 8.2 L TSH Urine Color YELLOW Urine Appearance CLEAR Urine pH 7.0 Ur Specific [place] 1.015 Urine Protein NEGATIVE Urine Glucose (UA) 50 H Urine Ketones TRACE H Urine Blood SMALL H Urine Nitrite NEGATIVE Ur Leukocyte Esterase NEGATIVE Urine WBC (Auto) 1 Urine RBC (Auto) 2 10/22/19 06:15 WBC RBC Hgb Hct MCV MCH MCHC RDW Plt Count Seg Neutrophils % Sodium Potassium Chloride Carbon Dioxide Anion Gap BUN Creatinine Est GFR ( Amer) Glucose Calcium TSH 2.56 Urine Color Urine Appearance Urine pH Ur Specific [place] Urine Protein Urine Glucose (UA) Urine Ketones Urine Blood Urine Nitrite Ur Leukocyte Esterase Urine WBC (Auto) Urine RBC (Auto) 10/21/19 10/21/19 14:01 18:13 Troponin I < 0.012 < 0.012 Impressions: Chest X-Ray 10/21/19 13:23 IMPRESSION: NO ACUTE RADIOGRAPHIC FINDING IN THE CHEST. Chest/Abdomen CTA 10/21/19 13:26 IMPRESSION: No PE. No acute findings. Head CT 10/21/19 13:26 IMPRESSION: NORMAL BRAIN CT WITHOUT CONTRAST. EVIDENCE OF ACUTE STROKE: NO. Assessment and Plan - Diagnosis (1) Neutropenic fever Is this a current diagnosis for this admission?: Yes Plan: Plan is to leave her on current antibiotics until blood cultures are negative for 48 hours. At that point, if cultures remain negative, we will discontinue vancomycin. And at that point she will stay on cefepime until she is afebrile with an absolute neutrophil count greater than 1000. (2) Hypothyroidism Qualifiers: Hypothyroidism type: acquired Qualified Code(s): E03.9 - Hypothyroidism, unspecified Is this a current diagnosis for this admission?: Yes Plan: We will continue her Synthroid (3) Hyperlipidemia Qualifiers: Hyperlipidemia type: other hyperlipidemia Qualified Code(s): E78.49 - Other hyperlipidemia; E78.4 - Other hyperlipidemia Is this a current diagnosis for this admission?: Yes Plan: We will continue Crestor (4) History of atrial fibrillation Is this a current diagnosis for this admission?: Yes Plan: No events on telemetry, she remains in a sinus rhythm (5) Breast cancer Qualifiers: Breast location: lower outer quadrant of breast Estrogen receptor status: negative Patient sex: female Laterality: left Qualified Code(s): C50.512 - Malignant neoplasm of lower-outer quadrant of left female breast; Z17.1 - Estrogen receptor negative status [ER-] Is this a current diagnosis for this admission?: Yes Plan: She does not recall the exact name of the drug she was on, but she was told that that was probably the reason for her diarrhea. The diarrhea seems to be improving. She says she supposed to do a cycle of treatment every 3 weeks. She will follow-up with Dr. Kinney. (6) Syncope Qualifiers: Syncope type: vasovagal syncope Qualified Code(s): R55 - Syncope and collapse Is this a current diagnosis for this admission?: Yes Plan: I think that most likely this was due to the hypovolemia and vasovagal syncope. She has had no evidence of any events on the cardiac technologist. - Time Time Spent with patient: 15-24 minutes
[2019-10-23] MEDS: MEROPENEM 1 GM in NORMAL SALINE 50 ML IV SCH ×3 (02:24→18:14)
[2019-10-23] MEDS: HEPARIN SOD (PORCINE) 5,000 UNIT/ML 1 ML VIAL SUBCUT SCH ×3 (05:49→21:35)
[2019-10-23] MEDS: VANCOMYCIN HCL 1,250 MG in DEXTROSE 5%-WATER 250 ML IV SCH (05:49)
[2019-10-23 06:25] LABS: ABSOLUTE LYMPHOCYTES (AUTO) 2.1 10^3/uL (0.5-4.7); ABSOLUTE MONOCYTES (AUTO) 1.3 10^3/uL (0.1-1.4); ABSOLUTE NEUT (AUTO) 8.4 10^3/uL (1.7-8.2); BASOPHILS % (AUTO) 0.2 % (0-2); HEMOGLOBIN 11.1 g/dL (12.0-15.5); LYMPHOCYTES % (AUTO) 17.6 % (13-45); MEAN CORPUSCULAR HEMOGLOBIN 30.5 pg (27.0-33.4); MEAN CORPUSCULAR HGB CONC 35.7 g/dL (32.0-36.0); MEAN CORPUSCULAR VOLUME 86 fl (80-97); MONOCYTES % (AUTO) 11.2 % (3-13); PLATELET COUNT 186 10^3/uL (150-450); RED BLOOD COUNT 3.63 10^6/uL (3.72-5.28); RED CELL DISTRIBUTION WIDTH 13.3 % (11.5-14.0); TOTAL CELLS COUNTED % (AUTO) 100 %
[2019-10-23 06:30] LABS: WHITE BLOOD COUNT 11.9 10^3/uL (4.0-10.5)
[2019-10-23 06:31] LABS: ANION GAP 6 (5-19); BLOOD UREA NITROGEN 4 mg/dL (7-20); CALCIUM 8.3 mg/dL (8.4-10.2); CARBON DIOXIDE 26 mmol/L (22-30); CHLORIDE 102 mmol/L (98-107); GLUCOSE 91 mg/dL (75-110); POTASSIUM 3.6 mmol/L (3.6-5.0)
[2019-10-23 06:34] LABS: VANCOMYCIN,TROUGH 9.7 ug/mL (5.0-20.0)
[2019-10-23] MEDS: LOPERAMIDE HCL 2 MG CAPSULE PO PRN (09:39)
[2019-10-23] MEDS: FILGRASTIM-AAFI 480 MCG/0.8 ML SYRINGE SUBCUT SCH (09:39)
--- NOTE | 2019-10-23 11:17 | PDOC PROGRESS REPORT ---
Subjective Progress Note for:: 10/23/19 Subjective:: Wt ct up to 11, ANC >1000, gave orders to pharmacy to stop neupogen. Reason For Visit: SYNCOPE,NEUTROPENIC FEVER,ENTERITIS,BREAST CANCER Physical Exam Vital Signs: Temp Pulse Resp BP Pulse Ox 98.0 F 81 16 105/66 98 10/23/19 07:18 10/23/19 07:33 10/23/19 07:18 10/23/19 07:18 10/23/19 07:18 Intake & Output 10/22/19 10/23/19 10/24/19 06:59 06:59 06:59 Intake Total 2150 1308 300 Output Total 600 1050 Balance 1550 258 300 Weight 89 kg 89 kg Results Laboratory Results: 10/23/19 05:45 10/23/19 05:45 10/23/19 10/23/19 05:45 05:45 WBC 11.9 H D RBC 3.63 L Hgb 11.1 L Hct 31.0 L MCV 86 MCH 30.5 MCHC 35.7 RDW 13.3 Plt Count 186 Seg Neutrophils % 71.0 Sodium 133.9 L Potassium 3.6 Chloride 102 Carbon Dioxide 26 Anion Gap 6 BUN 4 L Creatinine 0.68 Est GFR ( Amer) > 60 Glucose 91 Calcium 8.3 L 10/21/19 10/21/19 14:01 18:13 Troponin I < 0.012 < 0.012 Impressions: Chest X-Ray 10/21/19 13:23 IMPRESSION: NO ACUTE RADIOGRAPHIC FINDING IN THE CHEST. Chest/Abdomen CTA 10/21/19 13:26 IMPRESSION: No PE. No acute findings. Head CT 10/21/19 13:26 IMPRESSION: NORMAL BRAIN CT WITHOUT CONTRAST. EVIDENCE OF ACUTE STROKE: NO. Assessment & Plan - Diagnosis (1) Neutropenic fever Is this a current diagnosis for this admission?: Yes Plan: d/c neupogen, d/c vancMerlin will discuss w/ Dr. wynn about oral atbx plan (2) Breast cancer Qualifiers: Breast location: lower outer quadrant of breast Estrogen receptor status: negative Patient sex: female Laterality: left Qualified Code(s): C50.512 - Malignant neoplasm of lower-outer quadrant of left female breast; Z17.1 - Estrogen receptor negative status [ER-] Is this a current diagnosis for this admission?: Yes Plan: further rx as outpt (3) Dehydration Is this a current diagnosis for this admission?: Yes Plan: cont IVF, still had some diarrhea and fever overnight (4) Nausea & vomiting Qualifiers: Vomiting type: unspecified Vomiting Intractability: intractable Qualified Code(s): R11.2 - Nausea with vomiting, unspecified Is this a current diagnosis for this admission?: Yes Plan: Improved (5) Diarrhea Qualifiers: Diarrhea type: unspecified type Qualified Code(s): R19.7 - Diarrhea, unspecified Is this a current diagnosis for this admission?: Yes Plan: slowly improving - Time Time Spent with patient: 15-24 minutes
--- NOTE | 2019-10-23 12:19 | PDOC PROGRESS REPORT ---
Subjective Progress Note for:: 10/23/19 Subjective:: No adverse events overnight. She had a T-max overnight of 99.8 F around midnight last night. She said that her diarrhea had improved yesterday, but it had started back on her this morning. No nausea or abdominal pain. She has been eating and drinking without difficulty. She has had good urine output. Reason For Visit: SYNCOPE,NEUTROPENIC FEVER,ENTERITIS,BREAST CANCER Physical Exam Vital Signs: Temp Pulse Resp BP Pulse Ox 98.7 F 80 18 103/63 100 10/23/19 12:00 10/23/19 12:00 10/23/19 12:00 10/23/19 12:00 10/23/19 12:00 Intake & Output 10/22/19 10/23/19 10/24/19 06:59 06:59 06:59 Intake Total 2150 1308 350 Output Total 600 1050 Balance 1550 258 350 Weight 89 kg 89 kg General appearance: PRESENT: no acute distress, cooperative, disheveled, obese Respiratory exam: PRESENT: clear to auscultation arnulfo, symmetrical, unlabored. ABSENT: accessory muscle use, chest wall tenderness, crackles, prolonged expiratory phas, retraction, rhonchi, tachypnea, wheezes Cardiovascular exam: PRESENT: RRR, +S1, +S2. ABSENT: systolic murmur Pulses: PRESENT: normal carotid pulses Vascular exam: PRESENT: normal capillary refill GI/Abdominal exam: PRESENT: hyperactive bowel sounds, soft. ABSENT: distended, guarding, tenderness Extremities exam: ABSENT: clubbing, pedal edema Musculoskeletal exam: PRESENT: ambulatory, normal inspection. ABSENT: deformity Neurological exam: PRESENT: alert, awake, oriented to person, oriented to place, oriented to time, oriented to situation Psychiatric exam: PRESENT: appropriate affect, normal mood Skin exam: PRESENT: dry, warm Results Laboratory Results: 10/23/19 05:45 10/23/19 05:45 10/23/19 10/23/19 05:45 05:45 WBC 11.9 H D RBC 3.63 L Hgb 11.1 L Hct 31.0 L MCV 86 MCH 30.5 MCHC 35.7 RDW 13.3 Plt Count 186 Seg Neutrophils % 71.0 Sodium 133.9 L Potassium 3.6 Chloride 102 Carbon Dioxide 26 Anion Gap 6 BUN 4 L Creatinine 0.68 Est GFR ( Amer) > 60 Glucose 91 Calcium 8.3 L 10/21/19 10/21/19 14:01 18:13 Troponin I < 0.012 < 0.012 Impressions: Chest X-Ray 10/21/19 13:23 IMPRESSION: NO ACUTE RADIOGRAPHIC FINDING IN THE CHEST. Chest/Abdomen CTA 10/21/19 13:26 IMPRESSION: No PE. No acute findings. Head CT 10/21/19 13:26 IMPRESSION: NORMAL BRAIN CT WITHOUT CONTRAST. EVIDENCE OF ACUTE STROKE: NO. Assessment and Plan - Diagnosis (1) Neutropenic fever Is this a current diagnosis for this admission?: Yes Plan: Plan is to leave her on current antibiotics until blood cultures are negative for 48 hours. At that point, if cultures remain negative, we will discontinue vancomycin. And at that point she will stay on cefepime until she is afebrile. Blood cultures should come out for the 48-hour report after 2 PM this afternoon. Her neutrophil count has recovered with Neupogen. (2) Hypothyroidism Qualifiers: Hypothyroidism type: acquired Qualified Code(s): E03.9 - Hypothyroidism, unspecified Is this a current diagnosis for this admission?: Yes Plan: We will continue her Synthroid (3) Hyperlipidemia Qualifiers: Hyperlipidemia type: other hyperlipidemia Qualified Code(s): E78.49 - Other hyperlipidemia; E78.4 - Other hyperlipidemia Is this a current diagnosis for this admission?: Yes Plan: We will continue Crestor (4) History of atrial fibrillation Is this a current diagnosis for this admission?: Yes Plan: No events on telemetry, she remains in a sinus rhythm (5) Breast cancer Qualifiers: Breast location: lower outer quadrant of breast Estrogen receptor status: negative Patient sex: female Laterality: left Qualified Code(s): C50.512 - Malignant neoplasm of lower-outer quadrant of left female breast; Z17.1 - Estrogen receptor negative status [ER-] Is this a current diagnosis for this admission?: Yes Plan: She does not recall the exact name of the drug she was on, but she was told that that was probably the reason for her diarrhea. She says she supposed to do a cycle of treatment every 3 weeks. She will follow-up with Dr. Kinney. (6) Syncope Qualifiers: Syncope type: vasovagal syncope Qualified Code(s): R55 - Syncope and collapse Is this a current diagnosis for this admission?: Yes Plan: I think that most likely this was due to the hypovolemia from diarrhea and vasovagal syncope. She has had no evidence of any events on the monitoring and evaluation advisor. We will continue IV fluids overnight. - Time Time Spent with patient: 15-24 minutes
[2019-10-23] MEDS ORDERED: VANCOMYCIN HCL 1,500 MG in DEXTROSE 5%-WATER 250 ML IV SCH (14:00)
[2019-10-24] MEDS: ONDANSETRON HCL INJ/PF 4 MG/2 ML SDV IV PRN (00:55)
[2019-10-24] MEDS: MEROPENEM 1 GM in NORMAL SALINE 50 ML IV SCH ×2 (01:40→09:01)
[2019-10-24] MEDS: RINGERS SOLUTION,LACTATED 1,000 ML IV PRN (01:43)
[2019-10-24] MEDS: HEPARIN SOD (PORCINE) 5,000 UNIT/ML 1 ML VIAL SUBCUT SCH ×2 (05:38→14:02)
[2019-10-24 05:52] LABS: HEMATOCRIT 30.5 % (36.0-47.0); HEMOGLOBIN 10.8 g/dL (12.0-15.5); MEAN CORPUSCULAR HEMOGLOBIN 30.3 pg (27.0-33.4); MEAN CORPUSCULAR HGB CONC 35.2 g/dL (32.0-36.0); MEAN CORPUSCULAR VOLUME 86 fl (80-97); PLATELET COUNT 213 10^3/uL (150-450); RED BLOOD COUNT 3.55 10^6/uL (3.72-5.28); RED CELL DISTRIBUTION WIDTH 13.3 % (11.5-14.0)
[2019-10-24 05:55] LABS: WHITE BLOOD COUNT 27.7 10^3/uL (4.0-10.5)
[2019-10-24 06:07] LABS: BLOOD UREA NITROGEN 4 mg/dL (7-20); CALCIUM 8.6 mg/dL (8.4-10.2); CARBON DIOXIDE 28 mmol/L (22-30); CHLORIDE 104 mmol/L (98-107); GLUCOSE 91 mg/dL (75-110); POTASSIUM 3.5 mmol/L (3.6-5.0)
[2019-10-24 06:27] LABS: ABSOLUTE LYMPHOCYTES# (MANUAL) 3.9 10^3/uL (0.5-4.7); ABSOLUTE MONOCYTES # (MANUAL) 2.2 10^3/uL (0.1-1.4); ANISOCYTOSIS 1+; BASOPHILS % (MANUAL) 0 % (0-2); EOSINOPHILS % (MANUAL) 0 % (0-6); LYMPHOCYTES % (MANUAL) 14 % (13-45); MONOCYTES % (MANUAL) 8 % (3-13); PLATELET COMMENT ADEQUATE; POLYCHROMASIA 1+; SEGMENTED NEUTROPHILS % (MAN) 62 % (42-78); TOTAL CELLS COUNTED 100
[2019-10-24 06:45] LABS: ANION GAP 4 (5-19)
[2019-10-24] MEDS: LOPERAMIDE HCL 2 MG CAPSULE PO PRN (09:54)
[2019-10-24] MEDS ORDERED: FLUTICASONE NASAL SPRAY 50 MCG/SPRY 120 SPRAY/16 GM NASL PRN (12:14)
[2019-10-24] MEDS ORDERED: PANTOPRAZOLE SODIUM 40 MG TABLET.DR PO SCH (12:30)
[2019-10-24] MEDS ORDERED: POTASSIUM CHLORIDE 10 MEQ TABLET.ER PO SCH (13:00)
--- NOTE | 2019-10-24 13:05 | PDOC DISCHARGE SUMMARY ---
Impression - Admit/DC Date/PCP Admission Date/Primary Care Provider: 10/21/19 17:33 HU KINNEY MD Discharge Date: 10/24/19 - Discharge Diagnosis (1) Neutropenic fever Is this a current diagnosis for this admission?: Yes (2) Nausea & vomiting Is this a current diagnosis for this admission?: Yes (3) Diarrhea Is this a current diagnosis for this admission?: Yes (4) Dehydration Is this a current diagnosis for this admission?: Yes (5) Syncope Is this a current diagnosis for this admission?: Yes (6) Hypothyroidism Is this a current diagnosis for this admission?: Yes (7) History of atrial fibrillation Is this a current diagnosis for this admission?: Yes - Additional Information Resuscitation Status: Full Code Discharge Diet: As Tolerated Discharge Activity: Activity As Tolerated Referrals: HU KINNEY MD [Primary Care Provider] - 10/27/19 1:30 pm Prescriptions: Ciprofloxacin HCl [Cipro 500 mg Tablet] 500 mg PO BID 7 Days #14 tablet Metronidazole 375 mg PO TID 7 Days #21 capsule Potassium Chloride 20 meq PO DAILY 7 Days #7 tablet.er Home Medications: Eszopiclone [Lunesta] 1 mg PO QHS PRN 10/21/19 Levothyroxine Sodium 88 mcg PO QAM 10/21/19 Azelastine HCl 1 spray NS DAILYP PRN 10/22/19 Citalopram Hydrobromide [Celexa 20 mg Tablet] 40 mg PO QPM 10/22/19 Fluticasone Propionate [Flonase Nasal Scammon 50 Mcg/Scammon 16 gm] 1 spray NASL DAILYP PRN 10/22/19 Montelukast Sodium [Singulair 10 mg Tablet] 10 mg PO QHS 10/22/19 Rosuvastatin Calcium 20 mg PO QPM 10/22/19 Ciprofloxacin HCl [Cipro 500 mg Tablet] 500 mg PO BID 7 Days #14 tablet 10/24/19 Loperamide HCl [Imodium 2 mg Capsule] 4 mg PO Q6HP PRN capsule 10/24/19 Metronidazole 375 mg PO TID 7 Days #21 capsule 10/24/19 Potassium Chloride 20 meq PO DAILY 7 Days #7 tablet.er 10/24/19 History of Present Illiness History of Present Illness: JODIE FLORES is a 53 year old female with a history of atrial fibrillation status post ablation, hypothyroidism, hyperlipidemia, and recently diagnosed breast cancer. She said she was first diagnosed in August of this year. She just started chemotherapy about a week ago. She said about 4 days after she started chemotherapy, she started having diarrhea, which began about 4 days ago. She says she has been intermittently febrile since then. She said last night she had a fever of 101.2 Fahrenheit. She has not had any cough or shortness of breath. She is not had any dysuria. She has not had any abdominal pain, but she has had a lot of diarrhea. No vomiting. The diarrhea has been watery and not bloody. She has not been around anyone she knows to be sick. 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 She has been taking loperamide and Lomotil at home with minor benefit if any. She says she had an episode a couple of days ago where she passed out while she was on the toilet. She said yesterday she went to Dr. Kinney's office and got a bag of IV fluids and when she got up to walk out of the office she got really dizzy again. She said she has had a problem with that for several years and usually takes her time whenever she gets up before she starts walking. She denied feeling any palpitations before she passed out. She had atrial fibrillation and was on Multaq and Xarelto for some time, but after she got the ablation she was able to come off of both of those. She is in a sinus rhythm in the ER. She did not have any electrolyte disturbances or renal failure. She did have leukocytopenia with a neutropenia. She is being admitted for some empiric antibiotics for neutropenic fever along with checking her blood cultures, as well as evaluation of other etiologies of her syncope, and some IV fluids and an attempt to manage her diarrhea. Hospital Course Hospital Course: The patient reports that with antibiotic therapy and fluids she has felt progressively better. Her diarrhea has slowed down. She stated that she had one episode today. Overall she is much better, less abdominal rehydrated. Her white blood cell count has responded to the Neupogen and is quite high but this should slowly return to baseline. She has maintained adequate blood pressure. Luis experienced syncope due to the nausea and vomiting causing dehydration. Diarrhea most likely was related to some type of infectious process to assess. Because she responded to current antibiotic regimen discussion with Dr. Kinney, we will complete the course as an outpatient and he will be seeing her in the office. Physical Exam Vital Signs: Temp Pulse Resp BP Pulse Ox 97.9 F 82 16 104/70 98 10/24/19 07:43 10/24/19 07:43 10/24/19 07:43 10/24/19 07:43 10/24/19 07:43 Intake & Output 10/23/19 10/24/19 10/25/19 06:59 06:59 06:59 Intake Total 2308 1858 50 Output Total 1050 Balance 1258 1858 50 Weight 89 kg 83.4 kg General appearance: PRESENT: no acute distress, cooperative, well-developed, well-nourished Head exam: PRESENT: atraumatic, normocephalic Respiratory exam: PRESENT: clear to auscultation arnulfo, symmetrical, unlabored. ABSENT: rales, rhonchi, tachypnea, wheezes Cardiovascular exam: PRESENT: RRR, +S1, +S2 GI/Abdominal exam: PRESENT: normal bowel sounds, soft. ABSENT: distended, guarding, tenderness Rectal exam: PRESENT: deferred Gentrourinary exam: ABSENT: indwelling catheter Extremities exam: ABSENT: pedal edema Musculoskeletal exam: PRESENT: ambulatory, full ROM, normal inspection Neurological exam: PRESENT: alert, awake, oriented to person, oriented to place, oriented to time, oriented to situation, CN II-XII grossly intact. ABSENT: altered, motor sensory deficit Psychiatric exam: PRESENT: appropriate affect, normal mood. ABSENT: agitated, anxious Focused psych exam: ABSENT: delusional, paranoid, restlessness Skin exam: PRESENT: dry, normal color, warm. ABSENT: rash Results Laboratory Results: WBC 27.7 10^3/uL (4.0-10.5) H D 10/24/19 05:40 RBC 3.55 10^6/uL (3.72-5.28) L 10/24/19 05:40 Hgb 10.8 g/dL (12.0-15.5) L 10/24/19 05:40 Hct 30.5 % (36.0-47.0) L 10/24/19 05:40 MCV 86 fl (80-97) 10/24/19 05:40 MCH 30.3 pg (27.0-33.4) 10/24/19 05:40 MCHC 35.2 g/dL (32.0-36.0) 10/24/19 05:40 RDW 13.3 % (11.5-14.0) 10/24/19 05:40 Plt Count 213 10^3/uL (150-450) 10/24/19 05:40 Lymph % (Auto) Not Reportable 10/24/19 05:40 [place] % (Auto) Not Reportable 10/24/19 05:40 Eos % (Auto) Not Reportable 10/24/19 05:40 Baso % (Auto) Not Reportable 10/24/19 05:40 Absolute Neuts (auto) Not Reportable 10/24/19 05:40 Absolute Lymphs (auto) Not Reportable 10/24/19 05:40 Absolute Monos (auto) Not Reportable 10/24/19 05:40 Absolute Eos (auto) Not Reportable 10/24/19 05:40 Absolute Basos (auto) Not Reportable 10/24/19 05:40 Total Counted 100 10/24/19 05:40 Seg Neutrophils % Not Reportable 10/24/19 05:40 Seg Neuts % (Manual) 62 % (42-78) 10/24/19 05:40 Band Neutrophils % 16 % (3-5) H 10/24/19 05:40 Lymphocytes % (Manual) 14 % (13-45) 10/24/19 05:40 Monocytes % (Manual) 8 % (3-13) 10/24/19 05:40 Eosinophils % (Manual) 0 % (0-6) 10/24/19 05:40 Basophils % (Manual) 0 % (0-2) 10/24/19 05:40 Abs Neuts (Manual) 21.6 10^3/uL (1.7-8.2) H 10/24/19 05:40 Abs Lymphs (Manual) 3.9 10^3/uL (0.5-4.7) 10/24/19 05:40 Abs Monocytes (Manual) 2.2 10^3/uL (0.1-1.4) H 10/24/19 05:40 Absolute Eos (Manual) 0.0 10^3/uL (0.0-0.6) 10/24/19 05:40 Abs Basophils (Manual) 0.0 10^3/uL (0.0-0.2) 10/24/19 05:40 Toxic Vacuolation PRESENT 10/21/19 14:01 Large Platelets PRESENT 10/21/19 14:01 Platelet Comment ADEQUATE 10/24/19 05:40 Polychromasia 1+ 10/24/19 05:40 Anisocytosis 1+ 10/24/19 05:40 Ovalocytes SLIGHT 10/22/19 06:15 Sodium 136.4 mmol/L (137-145) L 10/24/19 05:40 Potassium 3.5 mmol/L (3.6-5.0) L 10/24/19 05:40 Chloride 104 mmol/L (98-107) 10/24/19 05:40 Carbon Dioxide 28 mmol/L (22-30) 10/24/19 05:40 Anion Gap 4 (5-19) L 10/24/19 05:40 BUN 4 mg/dL (7-20) L 10/24/19 05:40 Creatinine 0.68 mg/dL (0.52-1.25) 10/24/19 05:40 Est GFR ( Amer) > 60 (>60) 10/24/19 05:40 Est GFR (MDRD) Non-Af > 60 (>60) 10/24/19 05:40 Glucose 91 mg/dL (75-110) 10/24/19 05:40 Calcium 8.6 mg/dL (8.4-10.2) 10/24/19 05:40 Magnesium 2.0 mg/dL (1.6-2.3) 10/21/19 14:01 Total Bilirubin 0.4 mg/dL (0.2-1.3) 10/21/19 14:01 Direct Bilirubin 0.0 mg/dL (0.0-0.4) 10/21/19 14:01 Neonat Total Bilirubin Not Reportable 10/21/19 14:01 Neonat Direct Bilirubin Not Reportable 10/21/19 14:01 Neonat Indirect Bili Not Reportable 10/21/19 14:01 AST 30 U/L (14-36) 10/21/19 14:01 ALT 31 U/L (<35) 10/21/19 14:01 Alkaline Phosphatase 80 U/L (38-126) 10/21/19 14:01 Troponin I < 0.012 ng/mL 10/21/19 18:13 Total Protein 6.5 g/dL (6.3-8.2) 10/21/19 14:01 Albumin 3.8 g/dL (3.5-5.0) 10/21/19 14:01 Lipase 191.5 U/L (23-300) 10/21/19 14:01 TSH 2.56 uIU/mL (0.47-4.68) 10/22/19 06:15 Urine Color YELLOW 10/21/19 23:42 Urine Appearance CLEAR 10/21/19 23:42 Urine pH 7.0 (5.0-9.0) 10/21/19 23:42 Ur Specific [place] 1.015 10/21/19 23:42 Urine Protein NEGATIVE mg/dL (NEGATIVE) 10/21/19 23:42 Urine Glucose (UA) 50 mg/dL (NEGATIVE) H 10/21/19 23:42 Urine Ketones TRACE mg/dL (NEGATIVE) H 10/21/19 23:42 Urine Blood SMALL (NEGATIVE) H 10/21/19 23:42 Urine Nitrite NEGATIVE (NEGATIVE) 10/21/19 23:42 Urine Bilirubin NEGATIVE (NEGATIVE) 10/21/19 23:42 Urine Urobilinogen NEGATIVE mg/dL (<2.0) 10/21/19 23:42 Ur Leukocyte Esterase NEGATIVE (NEGATIVE) 10/21/19 23:42 Urine WBC (Auto) 1 /HPF 10/21/19 23:42 Urine RBC (Auto) 2 /HPF 10/21/19 23:42 Squamous Epi Cells Auto <1 /HPF 10/21/19 23:42 Urine Mucus (Auto) RARE /LPF 10/21/19 23:42 Urine Ascorbic Acid NEGATIVE (NEGATIVE) 10/21/19 23:42 Stl C. Difficile GDH Ag NEGATIVE (NEGATIVE) 10/22/19 13:31 Stl C.difficile Tox A&B NEGATIVE (NEGATIVE) 10/22/19 13:31 Time Trough Drawn 0545 10/23/19 05:45 Vancomycin Trough 9.7 ug/mL (5.0-20.0) 10/23/19 05:45 COVID-19 Source Cancelled 10/21/19 18:13 COVID-19 (BRANDIE) Cancelled 10/21/19 18:13 SARS-CoV-2 (PCR) NEGATIVE (NEGATIVE) 10/21/19 18:13 Group A Strep Rapid NEGATIVE (NEGATIVE) 10/21/19 14:09 Slides for Path Review PATHOLOGIST REVIEWED 10/21/19 14:01 10/21/19 10/21/19 14:01 18:13 Troponin I < 0.012 < 0.012 Impressions: Chest X-Ray 10/21/19 13:23 IMPRESSION: NO ACUTE RADIOGRAPHIC FINDING IN THE CHEST. Chest/Abdomen CTA 10/21/19 13:26 IMPRESSION: No PE. No acute findings. Head CT 10/21/19 13:26 IMPRESSION: NORMAL BRAIN CT WITHOUT CONTRAST. EVIDENCE OF ACUTE STROKE: NO. Plan Health Concerns: Infection with underlying malignancy Plan of Treatment: Complete antibiotics as ordered. Stay well-hydrated. Follow-up with oncology. Goals: Complete resolution of this event. Time Spent: Greater than 30 Minutes Stroke Is this a Stroke Patient?: No Acute Heart Failure - Is this a Heart Failure Patient?: No
[2019-10-24 13:16] VITALS: BP 104/64
[2019-10-24] MEDS ORDERED: CITALOPRAM HYDROBROMIDE 20 MG TABLET PO SCH (18:00)
[2019-10-24] MEDS ORDERED: MONTELUKAST SODIUM 10 MG TABLET PO SCH (22:00)
[2019-10-25 06:29] LABS: BAND NEUTROPHILS % (MANUAL) 16 % (3-5)
[2019-10-25] MEDS ORDERED: LEVOTHYROXINE SODIUM 0.088 MG TABLET PO SCH (08:00)
[2019-10-25 12:47] LABS: PATH REVIEW PATHOLOGIST REVIEWED
== END 2019-10-24 14:28 | disposition home or self-care (01) | DRG 810 ==
LOC: ER 12:54 → EH 17:33 → 4W 23:22
PROVIDERS: ADMIT Family Medicine; ATTEND Family Medicine
DX: D70.9 Neutropenia, unspecified (principal); R50.81 Fever presenting with conditions classified elsewhere; C50.512 Malignant neoplasm of lower-outer quadrant of left female breast; R19.7 Diarrhea, unspecified; R55 Syncope and collapse; E86.0 Dehydration; I48.91 Unspecified atrial fibrillation; E03.9 Hypothyroidism, unspecified; E78.5 Hyperlipidemia, unspecified; Z17.1 Estrogen receptor negative status [ER-]; Z79.01 Long term (current) use of anticoagulants; Z79.899 Other long term (current) drug therapy
CPT/HCPCS: 36415; 70450; 71045; 71275; 80048; 80053; 80202; 81001; 83690; 83735; 84443; 84484; 85025; 87040; 87045; 87070; 87205; 87324; 87449; 87635; 87880; 96361; 96374; 96375; 99285; J0743; J1200; J1642; J1644; J2185; J2405; J3370; J3490; J7060; J7120; Q5110; S0028

== ENCOUNTER 2019-11-03 13:53 | Emergency (ER) | payer OTHER ==
[2019-11-03 14:41] LABS: ABSOLUTE LYMPHOCYTES (AUTO) 0.5 10^3/uL (0.5-4.7); ABSOLUTE MONOCYTES (AUTO) 0.1 10^3/uL (0.1-1.4); ABSOLUTE NEUT (AUTO) 5.7 10^3/uL (1.7-8.2); BASOPHILS % (AUTO) 0.5 % (0-2); EOSINOPHILS % (AUTO) 0.2 % (0-6); HEMATOCRIT 35.4 % (36.0-47.0); HEMOGLOBIN 12.3 g/dL (12.0-15.5); LYMPHOCYTES % (AUTO) 8.4 % (13-45); MEAN CORPUSCULAR HEMOGLOBIN 30.7 pg (27.0-33.4); MEAN CORPUSCULAR HGB CONC 34.7 g/dL (32.0-36.0); MEAN CORPUSCULAR VOLUME 88 fl (80-97); MONOCYTES % (AUTO) 1.6 % (3-13); PLATELET COUNT 236 10^3/uL (150-450); RED CELL DISTRIBUTION WIDTH 14.5 % (11.5-14.0); SEGMENTED NEUTROPHILS % (AUTO) 89.3 % (42-78); TOTAL CELLS COUNTED % (AUTO) 100 %; WHITE BLOOD COUNT 6.4 10^3/uL (4.0-10.5)
--- NOTE | 2019-11-03 14:42 | ER Document Report ---
ED General - General Chief Complaint: Palpitations Stated Complaint: CHEST PAIN Primary Care Provider: HU BERNARD MD [ACTIVE STAFF] - Follow up as needed Notes: 53 related with left-sided breast cancer on IV chemotherapy Taxotere, developed lip swelling shortness of breath and rash after Taxotere despite pretreatment with steroids and Benadryl. She went to take her mask off to show the lip swelling about an hour ago she noticed chest pain: None heart attack" anterior pressure nonradiating nonpleuritic with mild shortness of breath all now resolved. Apparently she was in A. fib at the time, and is now in sinus tach. She has a history of A. fib ablated. She now feels much better while in the ED but is mildly tachycardic. TRAVEL OUTSIDE OF THE [place] IN LAST 30 DAYS: No - Related Data Allergies/Adverse Reactions: cephalexin monohydrate [From Keflex] Allergy (Verified 11/03/19 14:26) clarithromycin [From Biaxin] Allergy (Verified 11/03/19 14:26) erythromycin base [Erythromycin Base] Allergy (Verified 11/03/19 14:26) erythromycin lactobionate [From Erythrocin] Allergy (Verified 11/03/19 14:26) ibuprofen [Ibuprofen] Allergy (Verified 11/03/19 14:26) Sulfa (Sulfonamide Antibiotics) Allergy (Verified 11/03/19 14:26) Past Medical History - Social History Smoking Status: Never Smoker Chew tobacco use (# tins/day): No Family History: Reviewed & Not Pertinent, Hyperlipidemia, Hypertension, Thyroid Disfunction, Other Patient has homicidal ideation: No - Past Medical History Cardiac Medical History: Reports: Hx Atrial Fibrillation - Treated with ablation, Hx Hypercholesterolemia Endocrine Medical History: Reports: Hx Hypothyroidism Malignancy Medical History: Reports: Hx Breast Cancer Psychiatric Medical History: Denies: Hx Depression Past Surgical History: Reports: Hx Cardiac Surgery, Hx Thyroid Surgery - removal, Hx Vascular Surgery - Port - Immunizations Hx Diphtheria, Pertussis, Tetanus Vaccination: Yes Review of Systems - Review of Systems Notes: REVIEW OF SYSTEMS GEN: Denies fever, chills, weight loss ENT: Resolving lip swelling EYES: Denies blurry vision, eye pain, discharge CV: Chest pain RESP: Denies cough, shortness of breath, wheezing GI: Denies abdominal pain, nausea, vomiting, diarrhea MSK: Denies joint pain/swelling, edema, SKIN: Denies rash, skin lesions LYMPH: Denies swollen glands/lymph nodes NEURO: Denies headache, focal weakness or numbness, dizziness PSYCH: Denies depression, suicidal or homicidal ideation PHYSICAL EXAMINATION General: No acute distress, well-nourished Head: Atraumatic, normocephalic ENT: Mouth normal, oropharynx moist, no exudates or tonsillar enlargement Eyes: Conjunctiva normal, pupils equal, lids normal Neck: No JVD, supple, no guarding CVS: Cardiac, regular rhythm, no murmurs Resp: No resp distress, equal and normal breath sounds bilaterally GI: Nondistended, soft, no tenderness to palpation, no rebound or guarding Ext: No deformities, no edema, normal range of motion in upper and lower ext Back: No CVA or midline TTP Skin: No rash, warm Lymphatic: No lymphadeopathy noted Neuro: Awake, alert. Face symmetric. GCS 15. Physical Exam - Vital signs Vitals: Temp 98.6 F 11/03/19 13:54 Course - Re-evaluation Re-evalutation: 11/03/19 15:56 Reviewed patient's EKG strip from chemo. Seems to have had a episode of rapid A. fib which is spontaneously converted. This is in the setting of ablation. She is no longer on rate control or anticoagulation. Her symptoms, if they were due to mild anaphylaxis or not completely resolved and she feels well. Will rule out PE and check labs Patient's PE study EKG lab including troponin are negative and I doubt acute coronary syndrome or need for further work-up in that regard. She feels well and her swelling is decreased her heart rate is 100 in sinus rhythm. I discussed her case with radiology and Dr. Thomas Elizalde from oncology. Given that this was a single episode, neither are favoring anticoagulation or rate control. She will follow-up with Dr. Hills as an outpatient. I will start her on prednisone for 5 days given the reaction to the chemotherapy. I have discussed with the patient there likely diagnosis, aftercare plan, follow-up plans and my usual and customary return precautions. They verbalized understanding of this. - Vital Signs Vital signs: Temp Pulse Resp BP Pulse Ox 98.6 F 115 H 18 105/76 100 11/03/19 14:05 11/03/19 14:05 11/03/19 14:19 11/03/19 14:19 11/03/19 14:27 - Laboratory Result Diagrams: 11/03/19 14:15 11/03/19 14:15 Laboratory results interpreted by me: 11/03/19 11/03/19 14:15 14:15 Hct 35.4 L RDW 14.5 H Lymph % (Auto) 8.4 L [place] % (Auto) 1.6 L Seg Neutrophils % 89.3 H Chloride 109 H Carbon Dioxide 19 L Glucose 183 H - Diagnostic Test Radiology reviewed: Image reviewed, Reports reviewed - EKG Interpretation by Me EKG shows normal: Sinus rhythm Rate: Normal, Tachycardia Rhythm: NSR When compared to previous EKG there are: No significant change Discharge - Discharge Clinical Impression: Paroxysmal atrial fibrillation Allergic reaction Qualifiers: Encounter type: initial encounter Qualified Code(s): T78.40XA - Allergy, unspecified, initial encounter Condition: Good Disposition: HOME, SELF-CARE Instructions: Palpitations (Irregular or Rapid Heartrate) (OM) Additional Instructions: As we discussed in depth we are not starting you on a blood thinner or rate control medication but this may be required in the future if the atrial fibrillation recurs. 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 Prescriptions: Prednisone [Deltasone 20 mg Tablet] 3 tab PO DAILY 5 Days tablet Referrals: HU BERNARD MD [ACTIVE STAFF] - Follow up as needed
[2019-11-03 14:55] LABS: ALKALINE PHOSPHATASE 96 U/L (38-126); ANION GAP 10 (5-19); ASPARTATE AMINO TRANSFERASE 29 U/L (14-36); BILIRUBIN,TOTAL 0.5 mg/dL (0.2-1.3); BLOOD UREA NITROGEN 13 mg/dL (7-20); CALCIUM 8.8 mg/dL (8.4-10.2); CARBON DIOXIDE 19 mmol/L (22-30); CHLORIDE 109 mmol/L (98-107); GLUCOSE 183 mg/dL (75-110); POTASSIUM 3.8 mmol/L (3.6-5.0); TOTAL PROTEIN 6.8 g/dL (6.3-8.2)
--- NOTE | 2019-11-03 15:34 | RADIOLOGY REPORT (SQ) ---
EXAM DESCRIPTION: CTA CHEST IMAGES COMPLETED DATE/TIME: 11/03/2019 3:12 pm REASON FOR STUDY: Cancer pleuritic chest pain rule out PE COMPARISON: CT of the chest with contrast from 10/21/2019. TECHNIQUE: CT scan of the chest performed using helical scanning technique with dynamic intravenous contrast injection. Images reviewed with lung, soft tissue and bone windows. Reconstructed coronal and sagittal MPR images reviewed. Additional 3 dimensional post-processing performed to develop Maximal Intensity Projection images (MD P). All images stored on PACS. All CT scanners at this facility use dose modulation, iterative reconstruction, and/or weight based d osing when appropriate to reduce radiation dose to as low as reasonably achievable (ALARA). [facility]: Dose Right [facility]: CareDose [facility]: Dose Right [facility]: Teradose 4D [facility]: [place] CONTRAST TYPE AND DOSE: Contrast/concentration: Isovue 350.00 mg/ml; Total Contrast Delivered: 65.0 ml; Total Saline Delivered: 70.0 ml Contrast bolus optimized for the pulmonary arteries. RENAL FUNCTION: GFR > 60. RADIATION DOSE: CT Rad equipment meets quality standard of care and radiation dose reduction techniq ues were employed. CTDIvol: 6.6 - 22.6 mGy. DLP: 848 mGy-cm. LIMITATIONS: None. FINDINGS: LUNGS AND PLEURA: No consolidation, ground-glass opacification or pleural effusion. AORTA AND GREAT VESSELS: No aneurysm or dissection of the thoracic aorta. HEART: No cardiomegaly or pericardial effusion. PULMONARY ARTERIES: No emboli. HILAR AND MEDIASTINAL STRUCTURES: No adenopathy or mass. HARDWARE: The tip of the right IJ port terminates within the SVC. 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 THYROID AND OTHER SOFT TISSUES: Status post thyroidectomy. The enlarged lymph node in the low left a xilla is unchanged. BONES: No fracture or osseous lesion. 3D MIPS: Confirm above findings. OTHER: No other finding. IMPRESSION: No pulmonary emboli. COMMENT: Quality ID # [id number]: Final reports with documentation of one or more dose reduction techniques (e.g., Automated exposure control, adjustment of the mA and/or kV according to patient size, use of iterative reconstruction technique) TECHNICAL DOCUMENTATION: JOB ID: [id number] 2010 [employer]- All Rights Reserved Reading location - IP/workstation name: [facility] OFF[facility]ER[facility] CABARRUSJOSÉ ANTONIO
[2019-11-03 16:04] VITALS: BP 113/80
--- NOTE | 2019-11-03 20:41 | EKG REPORT ---
SEVERITY:- ABNORMAL ECG - SINUS TACHYCARDIA IVCD, CONSIDER ATYPICAL RBBB PROBABLE INFERIOR INFARCT, AGE INDETERMINATE : Confirmed by: Nancy Whiting 03-Nov-2019 20:40:31
== END 2019-11-03 16:24 | disposition home or self-care (01) ==
LOC: ER 13:53
DX: R22.0 Localized swelling, mass and lump, head (principal); T45.1X5A Adverse effect of antineoplastic and immunosuppressive drugs, initial encounter; I48.0 Paroxysmal atrial fibrillation; C50.912 Malignant neoplasm of unspecified site of left female breast; R07.9 Chest pain, unspecified; R00.0 Tachycardia, unspecified; Z79.899 Other long term (current) drug therapy; Z88.1 Allergy status to other antibiotic agents; Z88.8 Allergy status to other drugs, medicaments and biological substances; Z88.2 Allergy status to sulfonamides
CPT/HCPCS: 93005; 36591; 99285; 36415; 85025; 80053; 84484; 71275; 93010; J1642

== ENCOUNTER → 2019-12-15 | Outpatient (CLI) | payer OTHER ==
[2019-12-15 13:03] LABS: ANION GAP 8 (5-19); BLOOD UREA NITROGEN 8 mg/dL (7-20); CALCIUM 9.3 mg/dL (8.4-10.2); CARBON DIOXIDE 21 mmol/L (22-30); CHLORIDE 108 mmol/L (98-107); GLUCOSE 97 mg/dL (75-110); POTASSIUM 4.2 mmol/L (3.6-5.0)
== END ==
LOC: OD 11:32
PROVIDERS: ATTEND Physician Assistant
DX: I48.0 Paroxysmal atrial fibrillation (principal); E03.9 Hypothyroidism, unspecified
CPT/HCPCS: 36415; 80048; 83735; 84443

== ENCOUNTER → 2020-01-20 | Outpatient (CLI) | payer OTHER ==
--- NOTE | 2020-01-20 13:01 | RADIOLOGY REPORT (SQ) ---
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 Left ventricular functional analysis performed. LIMITATIONS: None. FINDINGS: LEFT VENTRICULAR FUNCTION: EJECTION FRACTION: 68%. END-DIASTOLIC VOLUME: 102 mL. END-SYSTOLIC VOLUME: 33 mL. WALL MOTION: No focal wall motion abnormalities. OTHER: No other significant finding. IMPRESSION: NORMAL CARDIAC MUGA STUDY. NORMAL LEFT VENTRICULAR FUNCTION WITH VALUES ABOVE. TECHNICAL DOCUMENTATION: JOB ID: [id number] 2010 [employer]- All Rights Reserved Reading location - IP/workstation name: [email or web address]
== END ==
LOC: RAD 10:49
PROVIDERS: ATTEND Internal Medicine
DX: Z08 Encounter for follow-up examination after completed treatment for malignant neoplasm (principal); C50.412 Malignant neoplasm of upper-outer quadrant of left female breast; Z79.899 Other long term (current) drug therapy
CPT/HCPCS: 78472; A9560; Q9969

== ENCOUNTER → 2020-04-27 | Outpatient (CLI) | payer OTHER ==
--- NOTE | 2020-04-27 12:26 | RADIOLOGY REPORT (SQ) ---
EXAM DESCRIPTION: NM MUGA REST IMAGES COMPLETED DATE/TIME: 04/27/2020 12:08 pm REASON FOR STUDY: ENCOUNTER FOR OTHER SPECIFIED SPECIAL EXAMINATIONS Z01.89 ENCOUNTER FOR OTHER SPE CIFIED SPECIAL EXAMINATIONS COMPARISON: 01/20/2020 RADIONUCLIDE AND DOSE: 25 mCi technetium 99m labeled red blood cells The route of agent administration: Intravenous TECHNIQUE: Following administration of the radionuclide, gated images of the heart are obtained in t hree projections. Left ventricular functional analysis performed. LIMITATIONS: None. FINDINGS: LEFT VENTRICULAR FUNCTION: EJECTION FRACTION: 75%. END-DIASTOLIC VOLUME: 86 mL. END-SYSTOLIC VOLUME: 21 mL. WALL MOTION: No focal wall motion abnormalities. OTHER: No other significant finding. IMPRESSION: NORMAL CARDIAC MUGA STUDY. NORMAL LEFT VENTRICULAR FUNCTION WITH VALUES ABOVE. TECHNICAL DOCUMENTATION: JOB ID: [id number] 2010 [employer]- All Rights Reserved Reading location - IP/workstation name: [email or web address]
== END ==
LOC: RAD 10:54
PROVIDERS: ATTEND Physician Assistant Medical
DX: Z01.89 Encounter for other specified special examinations (principal)
CPT/HCPCS: 78472; A9560; Q9969

== ENCOUNTER → 2020-06-06 | Outpatient (CLI) | payer OTHER ==
[2020-06-06 11:30] LABS: ALBUMIN 4.2 g/dL (3.5-5.0); ALKALINE PHOSPHATASE 92 U/L (38-126); ANION GAP 7 (5-19); ASPARTATE AMINO TRANSFERASE 30 U/L (14-36); BILIRUBIN,DIRECT 0.1 mg/dL (0.0-0.4); BILIRUBIN,TOTAL 0.4 mg/dL (0.2-1.3); BLOOD UREA NITROGEN 11 mg/dL (7-20); CALCIUM 9.9 mg/dL (8.4-10.2); CARBON DIOXIDE 23 mmol/L (22-30); CHLORIDE 106 mmol/L (98-107); CHOLESTEROL 151.68 mg/dL (0-200); GLUCOSE 101 mg/dL (75-110); POTASSIUM 4.4 mmol/L (3.6-5.0); TRIGLYCERIDES 144 mg/dL (<150)
[2020-06-06 11:41] LABS: DIRECT LDL 82 mg/dL (<100)
== END ==
LOC: OD 10:08
PROVIDERS: ATTEND Physician Assistant
DX: E78.2 Mixed hyperlipidemia (principal); I48.0 Paroxysmal atrial fibrillation; E83.42 Hypomagnesemia; Z79.899 Other long term (current) drug therapy
CPT/HCPCS: 36415; 80048; 80061; 80076; 83735